=== PATIENT | male | born 1935 | race Caucasian/White ===

== ENCOUNTER 2023-07-07 08:17 | Inpatient (IN) | payer OTHER ==
[~2023-07-07] VITALS: Ht 177.8 cm; Wt 62.1 kg
[2023-07-07 08:21] VITALS: BP_SYST 142; PULSE 135; RESP 18; TEMP 98; O2SAT 97
[2023-07-07] MEDS ORDERED: dilTIAZem HCL IVP 5 MG/ML VIAL IVP ONE (09:00)
[2023-07-07 09:25] LABS: BASOPHILS % (AUTO) 0.2 % (0.0-2.0); EOSINOPHILS % (AUTO) 0.1 % (0.0-4.0); HEMATOCRIT 35.9 % (36-54); HEMOGLOBIN 11.7 g/dL (14.0-18.0); LYMPHOCYTES # (AUTO) 0.4 K/uL (1.0-5.5); LYMPHOCYTES % (AUTO) 2.4 % (20.5-51.5); MEAN CORPUSCULAR HEMOGLOBIN 28 pg (27-31); MEAN CORPUSCULAR HGB CONC 33 % (32-36); MEAN CORPUSCULAR VOLUME 84 fL (79.0-98.0); MONOCYTES % (AUTO) 6.1 % (1.7-9.3); NEUTROPHILS # (AUTO) 14.4 K/uL (1.8-7.7); NEUTROPHILS % (AUTO) 91.2 % (40.0-70.0); PLATELET COUNT (AUTO) 177 K/uL (130-430); RED BLOOD CELL COUNT(AUTO) 4.26 MIL/uL (4.2-6.2); RED CELL DISTRIBUTION WIDTH 16.8 % (9.0-15.0); WHITE BLOOD COUNT (AUTO) 15.8 K/uL (4.8-10.8)
[2023-07-07 09:41] LABS: INR 1.1 (0.80-1.20); PROTHROMBIN TIME 11.3 SECS (9.5-12.5)
[2023-07-07 09:42] LABS: ANION GAP 11 (5-15); CALCIUM 8.3 mg/dL (8.4-11.0); CARBON DIOXIDE 22 mmol/L (23-29); CHLORIDE 104 mmol/L (98-107); CREATININE 1.04 mg/dL (0.55-1.30); GLUCOSE 179 mg/dL (74-106); POTASSIUM 3.2 mmol/L (3.5-5.1); SODIUM SERUM 137 mmol/L (136-145); UREA NITROGEN, BLOOD 18 mg/dL (8-21)
[2023-07-07 09:55] LABS: ALANINE AMINOTRANSFERASE 20 U/L (12-78); ALBUMIN 2.9 g/dL (3.4-4.8); ASPARTATE AMINOTRANSFERASE 20 U/L (10-37); BILIRUBIN,DIRECT 0.3 mg/dL (0.0-0.3); TOTAL PROTEIN, SERUM 6.1 g/dL (6.4-8.3)
[2023-07-07] MEDS ORDERED: cefTRIAXone 1 GM IVPB PREMIX 50 ML IV ONE (10:15)
[2023-07-07] MEDS ORDERED: iohexoL 350 mgI/mL, 100 ML INFUS..BTL IV ONE (12:51)
[2023-07-07] MEDS ORDERED: METOPROLOL SUCCINATE 25 MG TAB.SR.24H (TOPROL XL) PO ONE (14:00)
[2023-07-07] MEDS ORDERED: *LOVENOX0.75MG/KG Q12H/PHARMACY XX PRN (16:15)
[2023-07-07] MEDS ORDERED: LABETALOL HCL 20 MG/4 ML CARTRIDGE IVP SCH (16:15)
[2023-07-07] MEDS ORDERED: DIGOXIN 0.5 MG/2 ML AMP IVP ONE ×2 (17:30→23:00)
[2023-07-07] MEDS: ENOXAPARIN SODIUM 80 MG/0.8 ML SYRINGE SUBCUT SCH (18:22)
[2023-07-07] MEDS ORDERED: METF-379 PO (18:40)
[2023-07-07] MEDS ORDERED: ATOR-1 PO (18:40)
[2023-07-07] MEDS ORDERED: DILT120C95 PO (18:40)
[2023-07-07] MEDS ORDERED: HYDR-4037 PO (18:40)
[2023-07-07] MEDS ORDERED: TAMS0.4C96 PO (18:40)
[2023-07-07] MEDS ORDERED: APIX5TAB PO (18:40)
[2023-07-07 19:55] VITALS: BP_SYST 130; PULSE 77; RESP 18; TEMP 98.4; O2SAT 96
[2023-07-07 20:00] VITALS: BP_SYST 130; PULSE 91; RESP 18; TEMP 98.4; O2SAT 96
[2023-07-08] VITALS (7 sets, daily range): BP systolic 116–145; PULSE 63–102; RESP 16–18; TEMP 97.4–98.9; O2SAT 94–97
[2023-07-08] MEDS ORDERED: IPRATROPIUM/ALBUTEROL SULFATE 3 ML AMPUL.NEB (DUONEB) INH PRN (00:15)
[2023-07-08] MEDS: D5/0.45 NS 1,000 ML IV SCH ×3 (01:02→19:48)
[2023-07-08 03:13] LABS: INFLUENZA TYPE A Negative (NEGATIVE); INFLUENZA TYPE B NEGATIVE (NEGATIVE)
[2023-07-08] MEDS ORDERED: DIGOXIN 0.5 MG/2 ML AMP IVP ONE ×2 (05:00→11:30)
[2023-07-08] MEDS: ENOXAPARIN SODIUM 80 MG/0.8 ML SYRINGE SUBCUT SCH (06:10)
[2023-07-08 06:41] LABS: BASOPHILS % (AUTO) 0.2 % (0.0-2.0); EOSINOPHILS % (AUTO) 0.1 % (0.0-4.0); HEMATOCRIT 29.3 % (36-54); HEMOGLOBIN 9.8 g/dL (14.0-18.0); LYMPHOCYTES # (AUTO) 0.9 K/uL (1.0-5.5); LYMPHOCYTES % (AUTO) 6.6 % (20.5-51.5); MEAN CORPUSCULAR HEMOGLOBIN 28 pg (27-31); MEAN CORPUSCULAR HGB CONC 33 % (32-36); MEAN CORPUSCULAR VOLUME 83 fL (79.0-98.0); MONOCYTES # (AUTO) 1.1 K/uL (0.0-1.0); NEUTROPHILS # (AUTO) 11.3 K/uL (1.8-7.7); NEUTROPHILS % (AUTO) 85.1 % (40.0-70.0); PLATELET COUNT (AUTO) 142 K/uL (130-430); RED BLOOD CELL COUNT(AUTO) 3.53 MIL/uL (4.2-6.2); RED CELL DISTRIBUTION WIDTH 16.8 % (9.0-15.0); WHITE BLOOD COUNT (AUTO) 13.3 K/uL (4.8-10.8)
[2023-07-08 07:05] LABS: ANION GAP 10 (5-15); CALCIUM 8.7 mg/dL (8.4-11.0); CARBON DIOXIDE 25 mmol/L (23-29); CHLORIDE 106 mmol/L (98-107); CREATININE 1.39 mg/dL (0.55-1.30); GLUCOSE 109 mg/dL (74-106); POTASSIUM 3.7 mmol/L (3.5-5.1); SODIUM SERUM 141 mmol/L (136-145); UREA NITROGEN, BLOOD 28 mg/dL (8-21)
[2023-07-08 08:42] LABS: CHOLESTEROL 50 mg/dL (<200); HDL CHOLESTEROL 24 mg/dL (>45); TRIGLYCERIDES 79 mg/dL (30-150)
[2023-07-08] MEDS ORDERED: ASPIRIN 81 MG TAB.CHEW PO SCH (09:00)
[2023-07-08] MEDS ORDERED: METOPROLOL SUCCINATE 25 MG TAB.SR.24H (TOPROL XL) PO SCH (09:00)
[2023-07-08] MEDS ORDERED: ASPIRIN 300 MG/SUPP.RECT SUPP RC ONE (11:30)
[2023-07-08] MEDS: PIPERACILLIN/TAZO 4.5GM/DEX-IS 100 ML IV SCH ×2 (14:37→21:29)
[2023-07-09] VITALS (8 sets, daily range): BP systolic 126–163; PULSE 57–85; RESP 16–22; TEMP 97.4–98.8; O2SAT 90–98
[2023-07-09] MEDS: PIPERACILLIN/TAZO 4.5GM/DEX-IS 100 ML IV SCH ×3 (05:26→22:18)
[2023-07-09] MEDS ORDERED: ASPIRIN 300 MG/SUPP.RECT SUPP RC SCH (09:00)
[2023-07-09] MEDS: ENOXAPARIN SODIUM 40 MG/0.4 ML SYRINGE SUBCUT SCH (09:23)
[2023-07-09] MEDS: DIGOXIN 0.5 MG/2 ML AMP IVP SCH (09:23)
[2023-07-09] MEDS: AZITHROMYCIN 500 MG in NS 250 ML IV SCH (13:39)
[2023-07-09] MEDS: D5/0.45 NS 1,000 ML IV SCH (13:39)
[2023-07-10] VITALS (7 sets, daily range): BP systolic 140–196; PULSE 73–82; RESP 19–20; TEMP 98.3–98.6; O2SAT 93–98
[2023-07-10] MEDS: PIPERACILLIN/TAZO 4.5GM/DEX-IS 100 ML IV SCH ×3 (05:07→22:06)
[2023-07-10] MEDS: D5/0.45 NS 1,000 ML IV SCH ×2 (05:53→22:08)
[2023-07-10 06:08] LABS: BASOPHILS % (AUTO) 0.3 % (0.0-2.0); EOSINOPHILS # (AUTO) 0.1 K/uL (0.0-0.4); EOSINOPHILS % (AUTO) 0.8 % (0.0-4.0); HEMATOCRIT 35.1 % (36-54); HEMOGLOBIN 11.8 g/dL (14.0-18.0); LYMPHOCYTES # (AUTO) 0.6 K/uL (1.0-5.5); LYMPHOCYTES % (AUTO) 7.2 % (20.5-51.5); MEAN CORPUSCULAR HEMOGLOBIN 28 pg (27-31); MEAN CORPUSCULAR HGB CONC 34 % (32-36); MEAN CORPUSCULAR VOLUME 82 fL (79.0-98.0); MONOCYTES # (AUTO) 0.4 K/uL (0.0-1.0); MONOCYTES % (AUTO) 4.9 % (1.7-9.3); NEUTROPHILS # (AUTO) 7.5 K/uL (1.8-7.7); NEUTROPHILS % (AUTO) 86.8 % (40.0-70.0); PLATELET COUNT (AUTO) 189 K/uL (130-430); RED BLOOD CELL COUNT(AUTO) 4.26 MIL/uL (4.2-6.2); RED CELL DISTRIBUTION WIDTH 16.2 % (9.0-15.0); WHITE BLOOD COUNT (AUTO) 8.6 K/uL (4.8-10.8)
[2023-07-10 06:28] LABS: ANION GAP 13 (5-15); CALCIUM 8.8 mg/dL (8.4-11.0); CARBON DIOXIDE 21 mmol/L (23-29); CHLORIDE 105 mmol/L (98-107); CREATININE 1.06 mg/dL (0.55-1.30); GLUCOSE 185 mg/dL (74-106); SODIUM SERUM 139 mmol/L (136-145); UREA NITROGEN, BLOOD 18 mg/dL (8-21)
[2023-07-10] MEDS: amLODIPine BESYLATE 5 MG TABLET PO SCH (08:33)
[2023-07-10] MEDS: DIGOXIN 0.5 MG/2 ML AMP IVP SCH (08:34)
[2023-07-10] MEDS: ENOXAPARIN SODIUM 40 MG/0.4 ML SYRINGE SUBCUT SCH (08:35)
[2023-07-10] MEDS: hydrALAZINE HCL 20 MG/ML VIAL IVP PRN ×2 (10:18→16:56)
[2023-07-10] MEDS ORDERED: METOPROLOL TARTRATE 25 MG TABLET PO ONE (10:30)
[2023-07-10] MEDS ORDERED: APIXABAN 2.5 MG TABLET PO ONE (10:30)
[2023-07-10] MEDS ORDERED: KCL 40 mEq in 100 mL (PREMIX) 100 ML IV ONE (11:00)
[2023-07-10] MEDS: hydrALAZINE HCL 25 MG TABLET PO PRN (11:25)
[2023-07-10] MEDS: POTASSIUM CHLORIDE 20 mEq in 100 mL (PREMIX) 100 ML x 2 doses IV SCH ×2 (12:42→15:23)
[2023-07-10] MEDS: AZITHROMYCIN 500 MG in NS 250 ML IV SCH (14:26)
[2023-07-10] MEDS: hydrALAZINE HCL 10 MG TABLET PO SCH ×2 (15:27→21:59)
[2023-07-10] MEDS: METOPROLOL TARTRATE 25 MG TABLET PO SCH (22:00)
[2023-07-10] MEDS: APIXABAN 2.5 MG TABLET PO SCH (22:04)
[2023-07-11] VITALS (7 sets, daily range): BP systolic 111–161; PULSE 70–115; RESP 16–20; TEMP 97.4–98.5; O2SAT 93–98
[2023-07-11] MEDS: PIPERACILLIN/TAZO 4.5GM/DEX-IS 100 ML IV SCH ×3 (05:59→21:52)
[2023-07-11] MEDS: D5/0.45 NS 1,000 ML IV SCH ×2 (08:15→21:30)
[2023-07-11] MEDS: ATORVASTATIN 20 MG TABLET PO SCH (09:21)
[2023-07-11] MEDS: DIGOXIN 0.5 MG/2 ML AMP IVP SCH (09:21)
[2023-07-11] MEDS: metFORMIN HCL 500 MG TABLET PO SCH (09:21)
[2023-07-11] MEDS: hydrALAZINE HCL 10 MG TABLET PO SCH ×3 (09:21→21:29)
[2023-07-11] MEDS: TAMSULOSIN HCL 0.4 MG CAP PO SCH (09:22)
[2023-07-11] MEDS: METOPROLOL TARTRATE 25 MG TABLET PO SCH ×2 (09:22→21:28)
[2023-07-11] MEDS: amLODIPine BESYLATE 5 MG TABLET PO SCH (09:23)
[2023-07-11] MEDS: APIXABAN 2.5 MG TABLET PO SCH ×2 (09:25→21:29)
[2023-07-11] MEDS: AZITHROMYCIN 500 MG in NS 250 ML IV SCH (16:16)
[2023-07-12] VITALS (9 sets, daily range): BP systolic 141–165; PULSE 67–80; RESP 16–18; TEMP 97.3–99.2; O2SAT 93–98
[2023-07-12] MEDS: hydrALAZINE HCL 25 MG TABLET PO PRN (00:26)
[2023-07-12] MEDS: PIPERACILLIN/TAZO 4.5GM/DEX-IS 100 ML IV SCH ×2 (06:13→13:32)
[2023-07-12 06:32] LABS: EOSINOPHILS % (AUTO) 0.1 % (0.0-4.0); HEMATOCRIT 32.1 % (36-54); HEMOGLOBIN 10.7 g/dL (14.0-18.0); LYMPHOCYTES # (AUTO) 0.7 K/uL (1.0-5.5); LYMPHOCYTES % (AUTO) 5.4 % (20.5-51.5); MEAN CORPUSCULAR HEMOGLOBIN 28 pg (27-31); MEAN CORPUSCULAR HGB CONC 33 % (32-36); MEAN CORPUSCULAR VOLUME 82 fL (79.0-98.0); MONOCYTES # (AUTO) 0.9 K/uL (0.0-1.0); MONOCYTES % (AUTO) 6.5 % (1.7-9.3); NEUTROPHILS # (AUTO) 11.8 K/uL (1.8-7.7); PLATELET COUNT (AUTO) 158 K/uL (130-430); RED CELL DISTRIBUTION WIDTH 16.3 % (9.0-15.0); WHITE BLOOD COUNT (AUTO) 13.5 K/uL (4.8-10.8)
[2023-07-12 06:56] LABS: ALANINE AMINOTRANSFERASE 28 U/L (12-78); ALBUMIN 2.4 g/dL (3.4-4.8); ANION GAP 13 (5-15); ASPARTATE AMINOTRANSFERASE 29 U/L (10-37); CALCIUM 8.7 mg/dL (8.4-11.0); CARBON DIOXIDE 20 mmol/L (23-29); CHLORIDE 108 mmol/L (98-107); CREATININE 2.79 mg/dL (0.55-1.30); GLUCOSE 182 mg/dL (74-106); POTASSIUM 3.4 mmol/L (3.5-5.1); SODIUM SERUM 141 mmol/L (136-145); TOTAL BILIRUBIN 0.8 mg/dL (0.0-1.0); TOTAL PROTEIN, SERUM 5.7 g/dL (6.4-8.3); UREA NITROGEN, BLOOD 32 mg/dL (8-21)
[2023-07-12] MEDS: TAMSULOSIN HCL 0.4 MG CAP PO SCH (08:29)
[2023-07-12] MEDS: APIXABAN 2.5 MG TABLET PO SCH ×2 (08:30→22:55)
[2023-07-12] MEDS: ATORVASTATIN 20 MG TABLET PO SCH (08:31)
[2023-07-12] MEDS: hydrALAZINE HCL 10 MG TABLET PO SCH ×3 (08:32→22:56)
[2023-07-12] MEDS: amLODIPine BESYLATE 5 MG TABLET PO SCH (08:33)
[2023-07-12] MEDS: METOPROLOL TARTRATE 25 MG TABLET PO SCH ×2 (08:33→22:55)
[2023-07-12] MEDS: metFORMIN HCL 500 MG TABLET PO SCH (08:34)
[2023-07-12] MEDS: DIGOXIN 0.5 MG/2 ML AMP IVP SCH (08:59)
[2023-07-12] MEDS ORDERED: NACL 0.9% 1,000 ML IV ONE (10:15)
[2023-07-12] MEDS: D5/0.45 NS 1,000 ML IV SCH ×2 (10:55→13:13)
[2023-07-12] MEDS: AZITHROMYCIN 500 MG in NS 250 ML IV SCH (14:39)
[2023-07-12] MEDS ORDERED: IPRATROPIUM/ALBUTEROL SULFATE 3 ML AMPUL.NEB (DUONEB) INH ONE (16:00)
[2023-07-12] MEDS: cefTRIAXone 1 GM in D5W 50 ML IV SCH (17:20)
[2023-07-12] MEDS: IPRATROPIUM/ALBUTEROL SULFATE 3 ML AMPUL.NEB (DUONEB) INH SCH (21:09)
[2023-07-12 23:09] LABS: ANION GAP 13 (5-15); CALCIUM 7.9 mg/dL (8.4-11.0); CARBON DIOXIDE 17 mmol/L (23-29); CHLORIDE 108 mmol/L (98-107); GLUCOSE 172 mg/dL (74-106); SODIUM SERUM 138 mmol/L (136-145); UREA NITROGEN, BLOOD 39 mg/dL (8-21)
[2023-07-13] VITALS (9 sets, daily range): BP systolic 141–167; PULSE 78–89; RESP 18–20; TEMP 97.5–98.7; O2SAT 92–98
[2023-07-13 05:58] LABS: BASOPHILS % (AUTO) 0.2 % (0.0-2.0); EOSINOPHILS # (AUTO) 0.1 K/uL (0.0-0.4); EOSINOPHILS % (AUTO) 0.5 % (0.0-4.0); HEMATOCRIT 31.2 % (36-54); HEMOGLOBIN 10.4 g/dL (14.0-18.0); LYMPHOCYTES # (AUTO) 0.8 K/uL (1.0-5.5); LYMPHOCYTES % (AUTO) 6.1 % (20.5-51.5); MEAN CORPUSCULAR HEMOGLOBIN 27 pg (27-31); MEAN CORPUSCULAR HGB CONC 34 % (32-36); MEAN CORPUSCULAR VOLUME 82 fL (79.0-98.0); MONOCYTES # (AUTO) 0.9 K/uL (0.0-1.0); MONOCYTES % (AUTO) 7.3 % (1.7-9.3); NEUTROPHILS # (AUTO) 11.1 K/uL (1.8-7.7); NEUTROPHILS % (AUTO) 85.9 % (40.0-70.0); PLATELET COUNT (AUTO) 134 K/uL (130-430); RED BLOOD CELL COUNT(AUTO) 3.82 MIL/uL (4.2-6.2); RED CELL DISTRIBUTION WIDTH 16.2 % (9.0-15.0); WHITE BLOOD COUNT (AUTO) 12.9 K/uL (4.8-10.8)
[2023-07-13 06:39] LABS: ALANINE AMINOTRANSFERASE 35 U/L (12-78); ALBUMIN 2.3 g/dL (3.4-4.8); ANION GAP 15 (5-15); ASPARTATE AMINOTRANSFERASE 35 U/L (10-37); CALCIUM 8.2 mg/dL (8.4-11.0); CARBON DIOXIDE 18 mmol/L (23-29); CHLORIDE 112 mmol/L (98-107); CREATININE 3.07 mg/dL (0.55-1.30); GLUCOSE 156 mg/dL (74-106); POTASSIUM 3.2 mmol/L (3.5-5.1); SODIUM SERUM 145 mmol/L (136-145); TOTAL BILIRUBIN 0.5 mg/dL (0.0-1.0); TOTAL PROTEIN, SERUM 5.5 g/dL (6.4-8.3); UREA NITROGEN, BLOOD 40 mg/dL (8-21)
[2023-07-13] MEDS ORDERED: amLODIPine BESYLATE 5 MG TABLET PO SCH (09:00)
[2023-07-13] MEDS: metFORMIN HCL 500 MG TABLET PO SCH (09:23)
[2023-07-13] MEDS: TAMSULOSIN HCL 0.4 MG CAP PO SCH (09:23)
[2023-07-13] MEDS: amLODIPine BESYLATE 10 MG TABLET PO SCH (09:23)
[2023-07-13] MEDS: hydrALAZINE HCL 10 MG TABLET PO SCH ×3 (09:24→22:32)
[2023-07-13] MEDS: ATORVASTATIN 20 MG TABLET PO SCH (09:24)
[2023-07-13] MEDS: APIXABAN 2.5 MG TABLET PO SCH ×2 (09:25→22:33)
[2023-07-13] MEDS: METOPROLOL TARTRATE 25 MG TABLET PO SCH ×2 (09:26→22:31)
[2023-07-13] MEDS: DIGOXIN 0.5 MG/2 ML AMP IVP SCH (09:27)
[2023-07-13] MEDS: IPRATROPIUM/ALBUTEROL SULFATE 3 ML AMPUL.NEB (DUONEB) INH SCH ×2 (09:33→20:20)
[2023-07-13] MEDS: D5/0.45 NS 1,000 ML IV SCH (15:48)
[2023-07-13] MEDS: cefTRIAXone 1 GM in D5W 50 ML IV SCH (17:35)
[2023-07-14] VITALS (8 sets, daily range): BP systolic 135–176; PULSE 71–93; RESP 16–18; TEMP 98.1–98.9; O2SAT 92–96
[2023-07-14] MEDS: D5/0.45 NS 1,000 ML IV SCH ×2 (06:12→16:15)
[2023-07-14 06:56] LABS: BASOPHILS % (AUTO) 0.1 % (0.0-2.0); EOSINOPHILS # (AUTO) 0.1 K/uL (0.0-0.4); EOSINOPHILS % (AUTO) 0.9 % (0.0-4.0); HEMATOCRIT 32.1 % (36-54); HEMOGLOBIN 10.7 g/dL (14.0-18.0); LYMPHOCYTES # (AUTO) 0.8 K/uL (1.0-5.5); MEAN CORPUSCULAR HEMOGLOBIN 28 pg (27-31); MEAN CORPUSCULAR HGB CONC 33 % (32-36); MEAN CORPUSCULAR VOLUME 83 fL (79.0-98.0); MONOCYTES # (AUTO) 1.2 K/uL (0.0-1.0); MONOCYTES % (AUTO) 8.7 % (1.7-9.3); NEUTROPHILS # (AUTO) 11.2 K/uL (1.8-7.7); NEUTROPHILS % (AUTO) 84.3 % (40.0-70.0); PLATELET COUNT (AUTO) 146 K/uL (130-430); RED BLOOD CELL COUNT(AUTO) 3.89 MIL/uL (4.2-6.2); RED CELL DISTRIBUTION WIDTH 16.6 % (9.0-15.0); WHITE BLOOD COUNT (AUTO) 13.3 K/uL (4.8-10.8)
[2023-07-14 07:41] LABS: ALANINE AMINOTRANSFERASE 30 U/L (12-78); ALBUMIN 2.2 g/dL (3.4-4.8); ANION GAP 15 (5-15); ASPARTATE AMINOTRANSFERASE 25 U/L (10-37); CALCIUM 8.3 mg/dL (8.4-11.0); CARBON DIOXIDE 18 mmol/L (23-29); CHLORIDE 112 mmol/L (98-107); CREATININE 2.84 mg/dL (0.55-1.30); GLUCOSE 149 mg/dL (74-106); POTASSIUM 3.1 mmol/L (3.5-5.1); SODIUM SERUM 145 mmol/L (136-145); TOTAL BILIRUBIN 0.4 mg/dL (0.0-1.0); TOTAL PROTEIN, SERUM 5.7 g/dL (6.4-8.3); UREA NITROGEN, BLOOD 44 mg/dL (8-21)
[2023-07-14] MEDS: IPRATROPIUM/ALBUTEROL SULFATE 3 ML AMPUL.NEB (DUONEB) INH SCH ×2 (09:32→19:29)
[2023-07-14] MEDS: ATORVASTATIN 20 MG TABLET PO SCH (09:59)
[2023-07-14] MEDS: TAMSULOSIN HCL 0.4 MG CAP PO SCH (09:59)
[2023-07-14] MEDS: amLODIPine BESYLATE 10 MG TABLET PO SCH (10:00)
[2023-07-14] MEDS: APIXABAN 2.5 MG TABLET PO SCH ×2 (10:01→21:13)
[2023-07-14] MEDS: hydrALAZINE HCL 10 MG TABLET PO SCH ×3 (10:02→21:13)
[2023-07-14] MEDS ORDERED: POTASSIUM CHLORIDE 20 MEQ/PKT PACKET PO ONE (13:30)
[2023-07-14] MEDS: cefTRIAXone 1 GM in D5W 50 ML IV SCH (18:15)
[2023-07-14] MEDS: METOPROLOL TARTRATE 50 MG TABLET PO SCH (21:12)
[2023-07-15] MEDS: hydrALAZINE HCL 20 MG/ML VIAL IVP PRN (00:09)
[2023-07-15 01:22] VITALS: BP_SYST 164; PULSE 71; RESP 20; TEMP 97.2; O2SAT 96
[2023-07-15 05:11] LABS: BASOPHILS % (AUTO) 0.1 % (0.0-2.0); EOSINOPHILS # (AUTO) 0.1 K/uL (0.0-0.4); EOSINOPHILS % (AUTO) 0.7 % (0.0-4.0); HEMOGLOBIN 10.4 g/dL (14.0-18.0); LYMPHOCYTES # (AUTO) 0.5 K/uL (1.0-5.5); LYMPHOCYTES % (AUTO) 4.1 % (20.5-51.5); MEAN CORPUSCULAR HEMOGLOBIN 27 pg (27-31); MEAN CORPUSCULAR HGB CONC 34 % (32-36); MEAN CORPUSCULAR VOLUME 82 fL (79.0-98.0); NEUTROPHILS # (AUTO) 10.8 K/uL (1.8-7.7); NEUTROPHILS % (AUTO) 87.1 % (40.0-70.0); PLATELET COUNT (AUTO) 145 K/uL (130-430); RED BLOOD CELL COUNT(AUTO) 3.79 MIL/uL (4.2-6.2); RED CELL DISTRIBUTION WIDTH 16.5 % (9.0-15.0); WHITE BLOOD COUNT (AUTO) 12.4 K/uL (4.8-10.8)
[2023-07-15 05:17] LABS: ANION GAP 15 (5-15); CALCIUM 8.3 mg/dL (8.4-11.0); CARBON DIOXIDE 20 mmol/L (23-29); CHLORIDE 113 mmol/L (98-107); CREATININE 2.91 mg/dL (0.55-1.30); GLUCOSE 148 mg/dL (74-106); SODIUM SERUM 148 mmol/L (136-145); UREA NITROGEN, BLOOD 50 mg/dL (8-21)
[2023-07-15] MEDS: D5/0.45 NS 1,000 ML IV SCH ×2 (07:03→18:55)
[2023-07-15] MEDS ORDERED: DIATR MEGLU/DIATRIZ SOD 30 ML SOLUTION PO ONE (08:06)
[2023-07-15] MEDS: IPRATROPIUM/ALBUTEROL SULFATE 3 ML AMPUL.NEB (DUONEB) INH SCH ×2 (09:00→20:17)
[2023-07-15] MEDS ORDERED: APIX2.5T PO (11:11)
[2023-07-15] MEDS ORDERED: NOR10 PO (11:11)
[2023-07-15] MEDS ORDERED: METO-442 PO (11:11)
[2023-07-15 11:16] VITALS: BP_SYST 155; PULSE 78; RESP 18; TEMP 98.3; O2SAT 98
[2023-07-15] MEDS: amLODIPine BESYLATE 10 MG TABLET PO SCH (12:22)
[2023-07-15] MEDS: hydrALAZINE HCL 10 MG TABLET PO SCH ×3 (12:23→20:39)
[2023-07-15] MEDS: METOPROLOL TARTRATE 50 MG TABLET PO SCH ×2 (12:23→20:38)
[2023-07-15] MEDS: TAMSULOSIN HCL 0.4 MG CAP PO SCH (12:23)
[2023-07-15] MEDS: ATORVASTATIN 20 MG TABLET PO SCH (12:24)
[2023-07-15] MEDS: APIXABAN 2.5 MG TABLET PO SCH ×2 (12:24→20:40)
[2023-07-15] MEDS ORDERED: POTASSIUM CHLORIDE 20 MEQ/PKT PACKET PO ONE (12:30)
[2023-07-15] MEDS ORDERED: ROCPM1 IV (16:51)
[2023-07-15 16:53] VITALS: BP_SYST 131; PULSE 74; RESP 16; TEMP 98; O2SAT 93
[2023-07-15 17:04] VITALS: BP_SYST 155; PULSE 78; RESP 18; TEMP 98.3; O2SAT 98
[2023-07-15] MEDS: cefTRIAXone 1 GM in D5W 50 ML IV SCH (17:12)
[2023-07-15 20:00] VITALS: BP_SYST 131; PULSE 74; RESP 16; RESP 18; TEMP 97.6; O2SAT 93; O2SAT 94
== END 2023-07-15 23:55 | DRG 871 ==
LOC: SED 08:17 → STU 12:12 → SMU 07-15 20:00
PROVIDERS: ADMIT Specialist; ATTEND Specialist
DX: A41.9 Sepsis, unspecified organism (principal); J18.9 Pneumonia, unspecified organism; J69.0 Pneumonitis due to inhalation of food and vomit; G93.40 Encephalopathy, unspecified; N17.9 Acute kidney failure, unspecified; G45.9 Transient cerebral ischemic attack, unspecified; Z68.1 Body mass index [BMI] 19.9 or less, adult; F03.90 Unspecified dementia, unspecified severity, without behavioral disturbance, psychotic disturbance, mood disturbance, and anxiety; I48.91 Unspecified atrial fibrillation; I10 Essential (primary) hypertension; E11.9 Type 2 diabetes mellitus without complications; I51.7 Cardiomegaly; Z20.822 Contact with and (suspected) exposure to COVID-19; Z87.891 Personal history of nicotine dependence
CPT/HCPCS: 36415; 70450-TC; 70496; 70498; 70551; 71045; 74018; 76376; 80048; 80053; 80061; 80076; 82962; 83037; 83605; 83880; 84484; 85025; 85610; 85730; 87040; 87070; 87205; 92610-GN; 93005; 93306; 94640; 94760; 97110-GP; 97112-GP; 97116-GP; 97530-GP; 99291; G0378; J0360; J0456; J0696; J1160; J1650; J2543; J3480; J3490; J7050; J7060; Q9964; Q9967

== ENCOUNTER 2023-07-16 20:32 | Emergency (ER) | payer OTHER ==
[~2023-07-16] VITALS: Ht 177.8 cm; Wt 77.1 kg
[~2023-07-16 20:32] MED LIST: APIX2.5T PO; APIX5TAB PO; ATOR-1 PO; HYDR-4037 PO; METF-379 PO; METO-442 PO; NOR10 PO; ROCPM1 IV; TAMS0.4C96 PO
[2023-07-16 20:40] VITALS: BP_SYST 163; PULSE 58; RESP 17; TEMP 97.3; O2SAT 97
[2023-07-16] MEDS ORDERED: NS 500 ML IV ONE (21:30)
[2023-07-16 21:59] LABS: EOSINOPHILS # (AUTO) 0.1 K/uL (0.0-0.4); EOSINOPHILS % (AUTO) 0.5 % (0.0-4.0); HEMATOCRIT 31.6 % (36-54); HEMOGLOBIN 10.4 g/dL (14.0-18.0); LYMPHOCYTES # (AUTO) 0.5 K/uL (1.0-5.5); LYMPHOCYTES % (AUTO) 3.9 % (20.5-51.5); MEAN CORPUSCULAR HEMOGLOBIN 27 pg (27-31); MEAN CORPUSCULAR HGB CONC 33 % (32-36); MEAN CORPUSCULAR VOLUME 83 fL (79.0-98.0); MONOCYTES % (AUTO) 7.8 % (1.7-9.3); NEUTROPHILS # (AUTO) 11.7 K/uL (1.8-7.7); NEUTROPHILS % (AUTO) 87.8 % (40.0-70.0); PLATELET COUNT (AUTO) 155 K/uL (130-430); RED BLOOD CELL COUNT(AUTO) 3.82 MIL/uL (4.2-6.2); RED CELL DISTRIBUTION WIDTH 17.1 % (9.0-15.0); WHITE BLOOD COUNT (AUTO) 13.3 K/uL (4.8-10.8)
[2023-07-16 22:01] LABS: ANION GAP 13 (5-15); CALCIUM 8.2 mg/dL (8.4-11.0); CARBON DIOXIDE 21 mmol/L (23-29); CHLORIDE 112 mmol/L (98-107); CREATININE 3.76 mg/dL (0.55-1.30); GLUCOSE 176 mg/dL (74-106); POTASSIUM 4.1 mmol/L (3.5-5.1); SODIUM SERUM 146 mmol/L (136-145); UREA NITROGEN, BLOOD 61 mg/dL (8-21)
[2023-07-16 22:03] LABS: INR 1.1 (0.80-1.20); PROTHROMBIN TIME 11.4 SECS (9.5-12.5)
[2023-07-16 22:09] LABS: ALANINE AMINOTRANSFERASE 34 U/L (12-78); ALBUMIN 2.2 g/dL (3.4-4.8); ASPARTATE AMINOTRANSFERASE 32 U/L (10-37); BILIRUBIN,DIRECT 0.1 mg/dL (0.0-0.3); TOTAL BILIRUBIN 0.3 mg/dL (0.0-1.0); TOTAL PROTEIN, SERUM 5.9 g/dL (6.4-8.3)
[2023-07-16 22:14] LABS: BILIRUBIN,URINE NEGATIVE (NEGATIVE); BLOOD, URINE 3+ (NEGATIVE); COLOR,URINE YELLOW (YELLOW); GLUCOSE,URINE NEGATIVE (NEGATIVE); KETONES,URINE NEGATIVE (NEGATIVE); LEUKOCYTE ESTERASE ,URINE NEGATIVE (NEGATIVE); NITRITE, URINE NEGATIVE (NEGATIVE); PH,URINE 5.5 (5.0-8.0); PROTEIN URINE NEGATIVE (NEGATIVE); UROBILINOGEN,URINE 0.2 (0.2-1.0)
[2023-07-16 22:18] LABS: INFLUENZA TYPE A Negative (NEGATIVE); INFLUENZA TYPE B NEGATIVE (NEGATIVE)
[2023-07-16 22:27] LABS: BACTERIA,URINE None Seen /HPF (None Seen); WBC,URINE 0-3 /HPF (0-3)
[2023-07-16 22:29] LABS: CLARITY/URINE HAZY (CLEAR); MUCUS,URINE None Seen /LPF (None Seen)
[2023-07-16] MEDS ORDERED: METOPROLOL TARTRATE 25 MG TABLET PO ONE (23:45)
[2023-07-17 01:32] VITALS: BP_SYST 163; PULSE 81; RESP 24; TEMP 96.8; O2SAT 96
== END 2023-07-17 01:32 | disposition home or self-care (01) ==
LOC: SED 20:32
DX: U07.1 COVID-19 (principal); N19 Unspecified kidney failure; N13.9 Obstructive and reflux uropathy, unspecified; J18.1 Lobar pneumonia, unspecified organism; Z79.899 Other long term (current) drug therapy
CPT/HCPCS: 36415; 71045; 80048; 80076; 81000; 81001; 81015; 83605; 83880; 84484; 85025; 85610-TC; 85730-TC; 87040; 87086; 99285